=== PATIENT | male | born 1990 | race Caucasian/White ===

== ENCOUNTER 2021-07-31 18:33 | Emergency (ER) | payer OTHER, MEDICAID, SELFPAY ==
[2021-07-31 18:42] VITALS: BP 138/78; PULSE 88; RESP 20; TEMP 36.7; O2SAT 99
[2021-07-31 19:56] LABS: Bacteria Urine None Seen; Mucus Urine 1+ (Negative); Squamous Epithelial Cell Urine 0-1 /HPF (0-5/HPF)
[2021-07-31 19:57] LABS: Culture Indicated Urine Cult Not Indicated; Other Crystals Urine 1+ Amorphous; RBC Urine 1-5/HPF (0-5/HPF); WBC Urine 1-5/HPF (0-5/HPF)
== END 2021-07-31 20:21 | disposition left against medical advice (07) ==
PROVIDERS: Emergency Medicine; Emergency Provider Emergency Medicine
DX: M54.50 Low back pain, unspecified (principal)
CPT/HCPCS: 81003; 81015; 99282

== ENCOUNTER 2021-08-02 12:31 | Emergency (ER) | payer OTHER, MEDICAID, SELFPAY ==
[2021-08-02 12:37] VITALS: TEMP 36.8; BMI 39.1
[2021-08-02 14:46] LABS: Ictotest Urine Negative (Negative)
[2021-08-02 14:52] LABS: Bacteria Urine None Seen; Culture Indicated Urine Cult Not Indicated; Mucus Urine 1+ (Negative); RBC Urine 1-5/HPF (0-5/HPF); Squamous Epithelial Cell Urine 0-1 /HPF (0-5/HPF); WBC Urine 1-5/HPF (0-5/HPF)
[2021-08-02 17:29] VITALS: O2SAT 96
[2021-08-02 17:30] VITALS: BP 122/70; PULSE 72; O2SAT 98
--- NOTE | 2021-08-02 18:08 | ED.BACK ---
HPI - Back Pain/Injury General Chief Complaint: Back Pain/Injury Stated Complaint: Rt Sided Back Pain Time Seen by Provider: 08/02/21 17:59 Source: patient Mode of arrival: Ambulatory Limitations: no limitations History of Present Illness HPI Narrative: The patient presents with low back pain for about 1 week. He slept in a bad position. There is no twist, no fall or no trauma. He does not have chronic back pain. He has right posterior hip pain, radiating down the right lateral leg. He has no incontinence. He has no numbness or weakness in the right leg. He is ambulatory. He has no prior diagnosis is sciatica. He has taken multiple NSAIDs without relief. Related Data Previous Rx's Medication Instructions Recorded prednisone 20 mg tablet 60 mg PO DAILY 5 Days tab 08/02/21 Allergies Allergy/AdvReac Type Severity Reaction Status Date / Time amoxicillin Allergy Verified 08/02/21 12:37 Penicillins Allergy Verified 08/02/21 12:37 Sulfa (Sulfonamide Allergy Verified 08/02/21 12:37 Antibiotics) tagaderm Allergy Uncoded 08/02/21 12:37 Review of Systems Constitutional Constitutional: Denies chills, Reports difficulty sleeping, Denies fever(s), Denies headache(s) and Denies weakness ENT Ears, Nose, Mouth, and Throat: Denies headache(s), Denies neck mass, Denies sinus pain and Denies sore throat Cardiovascular Cardiovascular: Denies chest pain, Denies chest pain with activity, Denies rapid heart rate and Denies dyspnea Respiratory Respiratory: Denies cough and Denies dyspnea Genitourinary Genitourinary: Denies dysuria and Denies urinary frequency Musculoskeletal Musculoskeletal: Denies back pain, Denies arthralgias and Denies numbness Integumentary/Breasts Skin/Breast: Denies lesions and Denies rash Neurologic Neurologic: Denies headache(s), Denies numbness and Denies weakness Patient History Medical History (Updated 08/02/21 @ 18:20 by Jose Hernandez MD) No chronic diseases present tobacco type: smokeless tobacco alcohol intake frequency: 0-2 drinks per day Substance Use Type: marijuana Exam Initial Vital Signs Initial Vital Signs: Vital Signs Temperature 98.2 F 08/02/21 12:37 Const General: cooperative, healthy appearing and comfortable Back/Spine/Pelvis Other: Tenderness over L4-L5 and over the right SI joint. No palpable abnormalities. Neuro General: patient alert, patient awake and patient oriented x3 Other: No motor or sensory deficits in lower extremities. Extrem General: normal to inspection, full ROM, no pedal edema and no calf tenderness Other: Positive right straight leg raise. Psych Appearance: grossly normal Course Course Course Narrative: The patient was given Toradol 30 mg IM and prednisone 60 mg p.o. for right sciatica. He will revise take Advil for pain, prednisone 60 mg daily. Orders Ordered: Discontinued Medications Ketorolac Tromethamine (Ketorolac 30 Mg/Ml Vial) 30 mg IM NOW ONE Stop: 08/02/21 18:08 Last Admin: 08/02/21 18:23 Dose: 30 mg Documented by: MARY Prednisone (Prednisone 20 Mg Tablet) 60 mg PO NOW ONE Stop: 08/02/21 18:08 Last Admin: 08/02/21 18:23 Dose: 60 mg Documented by: MARY Vital Signs Vital signs: Vital Signs - 8 hr 08/02/21 12:37 08/02/21 17:29 08/02/21 17:30 Temperature 98.2 F Pulse Rate 72 Blood Pressure 122/70 Pulse Oximetry 96 98 MDM - Back Pain/Injury Lab Data Labs: Lab Results 08/02/21 Range/Units 14:31 Ur Bilirubin Confirm Negative (Negative) Urine RBC 1-5/hpf (0-5/HPF) Urine WBC 1-5/hpf (0-5/HPF) Ur Squamous Epith Cells 0-1 /hpf (0-5/HPF) Urine Bacteria None seen (None) Urine Mucus 1+ H (Negative) Ur Culture Indicated? Cult not indicated Urine Dip Bedside Urine Glucose 250 mg/dl Bedside Urine Bilirubin + 1 Bedside Urine Ketone +/- 5 Urine Specific [place] 1.025 Bedside Urine Occult Blood + Bedside Urine pH 5.5 Bedside Urine Protein ++ 100 Bedside Urine Urobilinogen - Negative Bedside Urine Nitrite - Negative Bedside Urine Leukocytes - Negative Esterase Discharge Plan Departure Patient Disposition: Home Clinical Impression: Sciatica Instructions: DI for Sciatica Activity Restrictions/Additional Instructions: Advil 3 tablets every 6 hours for pain. Prednisone 60 mg daily. Follow-up with the local doctor in 10 days if not improved. Return here as needed. Prescriptions: New prednisone 20 mg tablet 60 mg PO DAILY 5 Days 0RF
[2021-08-02] MEDS: predniSONE 20 MG TABLET 60 MG PO (18:23)
[2021-08-02] MEDS: KETOROLAC 30 MG/ML VIAL IM (18:23)
== END 2021-08-02 18:27 | disposition home or self-care (01) ==
PROVIDERS: Emergency Provider Emergency Medicine
DX: M54.31 Sciatica, right side (principal)
CPT/HCPCS: 81003; 81015; 96372; 99283; J1885